=== PATIENT | female | born 2005 | race Two or more races ===

== ENCOUNTER 2024-04-07 16:24 | Emergency (ER) | payer BC, OTHER ==
[~2024-04-07] VITALS: Ht 170.2 cm; Wt 133.2 kg
[2024-04-07 16:34] VITALS: BP 152/109; PULSE 114; RESP 20; O2SAT 97
[2024-04-07] MEDS ORDERED: ZOFR4T PO (16:46)
[2024-04-07] MEDS: LORazepam 0.5 MG TAB PO ONE (17:09)
[2024-04-07] MEDS: ONDANSETRON ODT 4 MG TAB PO ONE (17:12)
== END 2024-04-07 17:31 | disposition home or self-care (01) ==
LOC: ER 16:27
DX: F41.9 Anxiety disorder, unspecified (principal); F11.10 Opioid abuse, uncomplicated; J45.909 Unspecified asthma, uncomplicated; Z91.018 Allergy to other foods
CPT/HCPCS: 99283; Q0162